=== PATIENT | female | born 1975 | race Caucasian/White ===

== ENCOUNTER 2025-04-02 07:29 | Outpatient (RCR) | payer OTHER, SELFPAY ==
[2025-04-02] MEDS: COSYNTROPIN 0.25 MG VIAL IM (08:08)
[2025-04-02 08:13] LABS: Potassium 3.9 mmol/L (3.5-5.1)
== END 2025-04-06 23:59 | disposition home or self-care (01) ==
LOC: INF 07:29
PROVIDERS: PCP Family Medicine; Visit Provider Family Medicine
DX: R79.89 Other specified abnormal findings of blood chemistry (principal)
CPT/HCPCS: 36415; 82024; 82088; 82533; 84132; 84146; 96372; J0834